=== PATIENT | female | born 1995 | race Caucasian/White ===

== ENCOUNTER 2023-01-02 12:25 | Outpatient (CLI) | payer BC | END 2023-01-02 12:26 | disposition home or self-care (01) | LOC: BICRAD 12:25 | PROVIDERS: ATTEND Internal Medicine Rheumatology | DX: M46.1 Sacroiliitis, not elsewhere classified (principal) | CPT/HCPCS: 72202 ==

== ENCOUNTER 2024-04-18 11:43 | Outpatient (CLI) | payer BC | END 2024-04-18 11:44 | disposition home or self-care (01) | LOC: BICRAD 11:43 | DX: M25.572 Pain in left ankle and joints of left foot (principal); M25.571 Pain in right ankle and joints of right foot; M79.641 Pain in right hand; M79.642 Pain in left hand; M89.9 Disorder of bone, unspecified; M20.11 Hallux valgus (acquired), right foot; M20.12 Hallux valgus (acquired), left foot ==